=== PATIENT | female | born 1975 | race African-American/Black ===

== ENCOUNTER 2024-12-24 07:51 | Emergency (ER) | payer OTHER ==
[~2024-12-24] VITALS: Ht 162.6 cm; Wt 73.0 kg
[2024-12-24] MEDS: IOHEXOL 300 MG/ML 100ML BOTTLE IJ ONE (08:42)
[2024-12-24 08:44] LABS: Basophils # (auto) 0 10 ^3/uL (0-0.2); Basophils % (auto) 0.7 % (0.0-2.0); Eosinophils # (auto) 0 10 ^3/uL (0-0.8); Eosinophils % (auto) 0.3 % (0.0-7.0); Hematocrit 40.8 % (36.0-46.0); Hemoglobin 13.8 g/dL (12.2-16.2); Lymphocytes # (auto) 1.2 10 ^3/uL (0.4-5.4); Lymphocytes % (auto) 20.6 % (10.0-50.0); Mean Corpuscular Hemoglobin 33.7 pg (28.0-32.0); Mean Corpuscular Hgb Conc. 33.9 g/dL (32.0-36.0); Mean Corpuscular Volume 99.5 fL (80.0-100.0); Monocytes # (auto) 0.2 10 ^3/uL (0-1.3); Monocytes % (auto) 3.9 % (0.0-12.0); Neutrophils # (auto) 4.5 10 ^3/uL (1.6-8.6); Neutrophils % (auto) 74.5 % (37.0-80.0); Nucleated Red Blood Cells % 0.1 %; Platelet Count (auto) 250 10^3/uL (140-450); Red Blood Cells 4.11 10^6/uL (4.0-5.20); Red Cell Distribution Width 13.2 % (11.8-14.3)
[2024-12-24 09:06] LABS: Alanine Aminotransferase 19 U/L (7-40); Albumin 4.7 g/dL (3.2-4.8); Alkaline Phosphatase 97 U/L (46-116); Anion Gap 12 (5-15); Aspartate Aminotransferase 18 U/L (13-40); Bilirubin, Total 0.5 mg/dL (0.2-1.0); Carbon Dioxide 24 mmol/L (20-31); Chloride 103 mmol/L (98-107); Lipase 34 U/L (12-53); Sodium 139 mmol/L (136-145); Total Protein 7.6 g/dL (5.7-8.2)
[2024-12-24] MEDS: PANTOPRAZOLE 40 MG/10 ML VIAL INJ IV ONE (09:10)
[2024-12-24] MEDS: SODIUM CHLORIDE 0.9% 1,000 ML IV ONE (09:10)
[2024-12-24] MEDS: ONDANSETRON HCL 4 MG/2 ML VIAL IV ONE (09:11)
[2024-12-24] MEDS: MORPHINE SULFATE 4 MG/ML SYR/VIAL IV ONE (09:11)
[2024-12-24 09:15] VITALS: TEMP 98
[2024-12-24 09:19] LABS: Blood Urea Nitrogen 9 mg/dL (9-23); Calcium 10.5 mg/dL (8.7-10.4); Glucose 178 mg/dL (74-106); Potassium 3.3 mmol/L (3.5-5.1)
--- NOTE | 2024-12-24 09:48 | DVH ---
Exam: CT CT AB PEL WITH IV CON ONLY History: abdominal pain, hx of blockage COMPARISON: None Technique: Multidetector spiral CT of the abdomen and pelvis was performed from lung bases to pubic symphysis. Intravenous contrast was administered during this examination. Portal venous imaging was obtained. Axial, coronal and sagittal multiplanar reformats were performed by the technologist on a separate workstation. Radiation Dose : Abdomen/Pelvis: CTDIvol 8 mGy, DLP 464 mGy*cm. CONTRAST: Type of contrast: Omni 300 Contrast injected: 100 mL Findings: Lung Bases: No acute or significant lung base finding. Normal heart size. No pleural or pericardial effusion. Liver: Diffuse hepatic steatosis. Few hepatic cysts. Gallbladder and biliary Tree: Unremarkable Spleen: Unremarkable Pancreas: Cyst in the head of the pancreas measuring up to 7 mm. Adrenal Glands: Unremarkable Kidneys: Right upper pole renal cyst. No hydronephrosis. Bladder: Mass in the dependent bladder measuring up to 26 mm. Bowel: The stomach is grossly normal in appearance. Small bowel and colon are normal in caliber and d istribution. The appendix is not visualized; however, no secondary findings of acute appendicitis id entified. Mild diffuse wall thickening of the colon could be due to underdistention. Ascites: Absent Lymphadenopathy: No mesenteric, retroperitoneal or periportal lymphadenopathy. Abdominal wall and Mesentery: Unremarkable. Vasculature: The visualized abdominal aorta is normal in size and caliber. Abdominal and pelvic vess els demonstrate normal enhancement. Pelvic Organs: The uterus is surgically absent. Musculoskeletal: No aggressive focal bony lesions, acute fractures or dislocation. IMPRESSION: 1. Soft tissue mass in the dependent bladder measuring up to 26 mm concerning for bladder malignancy. This can be further evaluated with CT cystogram or MRI of the pelvis with contrast. Urology evaluati on is recommended. 2. Subcentimeter pancreatic cyst. Diffuse hepatic steatosis. Hepatic cysts. Consider further evalua tion with MRI of the abdomen with contrast. 3. Diffuse wall thickening of the colon could be due to underdistention or colitis. Clinical correla tion and continued follow-up is recommended. Radiation optimization: All CT scans at this facility use at least one of these dose optimization matilda hniques: Automated exposure control mA and/or kV adjustment per patient size (includes targeted exams where dose is matched to clinical indication) or iterative reconstruction. HS:Y
[2024-12-24 10:07] VITALS: BP 215/95; PULSE 50; RESP 16; O2SAT 98
[2024-12-24] MEDS ORDERED: MORPHINE SULFATE 4 MG/ML SYR/VIAL IV ONE ×2 (11:00→11:15)
[2024-12-24] MEDS ORDERED: ONDANSETRON HCL 4 MG/2 ML VIAL IV ONE ×2 (11:00→11:15)
--- NOTE | 2024-12-24 11:03 | ED.PDOC ---
History of Present Illness HPI Comments 49-year-old female with a history of bowel blockage presents with 2 days of intractable 10/10 lower abdominal pain associated with projectile nausea and vomiting. Patient reports that she is passing gastroenteritis he has not had any bowel movements. She tried taking Tylenol without relief. Patient denies a [place] fever chills dysuria or polyuria. Chief Complaint: Abdominal Pain Time Seen by MD: 07:55 Primary Care Provider: RENETTA Allergies: Coded Allergies: Penicillins (Verified Allergy, Unknown, 12/24/24) Information Source: Patient Mode of Arrival: Wheelchair Gastrointestinal: reports: abdominal pain, nausea Physical Exam General Appearance: Moderate Distress HEENT: Normal ENT Inspection Neck: Normal Inspection Respiratory: No Respiratory Distress Cardiovascular: Tachycardia Breast Exam: Deferred Gastrointestinal: Other (Diffuse abdominal tenderness) Genitalia: Deferred Pelvic: Deferred Rectal: Deferred Extremities: No pedal edema Neurologic: No Motor Deficits Cerebellar Function: NOT DONE Reflexes: NOT DONE Skin: Warm Lymphatic: NOT DONE Was a procedure done? Was a procedure done?: No Differential Dx Considerations may include: Gastroenteritis, cystitis, appendicitis, malignancy, diverticulitis X-Ray, Labs, Meds, VS Vital Signs Date Time Temp Pulse Resp B/P (MAP) Pulse Ox O2 Delivery O2 Flow Rate FiO2 12/24/24 10:07 50 16 215/95 (135) 98 12/24/24 10:03 50 16 215/95 12/24/24 09:15 98.0 65 17 162/70 (100) 98 98.0 12/24/24 09:11 65 17 162/70 12/24/24 09:08 Room Air* 0 21 12/24/24 08:09 48 12/24/24 08:00 98.0 54 24 172/59 (96) 100 Lab Test 12/24/24 08:20 Range/Units White Blood Count 6.0 4.4-10.8 10^3/uL Red Blood Count 4.11 4.0-5.20 10^6/uL Hemoglobin 13.8 12.2-16.2 g/dL Hematocrit 40.8 36.0-46.0 % Mean Corpuscular Volume 99.5 80.0-100.0 fL Mean Corpuscular Hemoglobin 33.7 H 28.0-32.0 pg Mean Corpuscular Hemoglobin Concent 33.9 32.0-36.0 g/dL Red Cell Distribution Width 13.2 11.8-14.3 % Platelet Count 250 140-450 10^3/uL Mean Platelet Volume 8.6 6.9-10.8 fL Neutrophils (%) (Auto) 74.5 37.0-80.0 % Lymphocytes (%) (Auto) 20.6 10.0-50.0 % Monocytes (%) (Auto) 3.9 0.0-12.0 % Eosinophils (%) (Auto) 0.3 0.0-7.0 % Basophils (%) (Auto) 0.7 0.0-2.0 % Neutrophils # (Auto) 4.5 1.6-8.6 10 ^3/uL Lymphocytes # (Auto) 1.2 0.4-5.4 10 ^3/uL Monocytes # (Auto) 0.2 0-1.3 10 ^3/uL Eosinophils # (Auto) 0 0-0.8 10 ^3/uL Basophils # (Auto) 0 0-0.2 10 ^3/uL Nucleated Red Blood Cells 0.1 % Sodium Level 139 136-145 mmol/L Potassium Level 3.3 L 3.5-5.1 mmol/L Chloride Level 103 98-107 mmol/L Carbon Dioxide Level 24 20-31 mmol/L Anion Gap 12 5-15 Blood Urea Nitrogen 9 9-23 mg/dL Creatinine 0.75 0.550-1.02 mg/dL Glomerular Filtration Rate Calc 96 >90 mL/min BUN/Creatinine Ratio 12.0 10.0-20.0 Serum Glucose 178 H 74-106 mg/dL Calcium Level 10.5 H 8.7-10.4 mg/dL Total Bilirubin 0.5 0.2-1.0 mg/dL Aspartate Amino Transferase (AST) 18 13-40 U/L Alanine Aminotransferase (ALT) 19 7-40 U/L Alkaline Phosphatase 97 46-116 U/L Total Protein 7.6 5.7-8.2 g/dL Albumin 4.7 3.2-4.8 g/dL Lipase 34 12-53 U/L Current Medications Medications (Trade) Dose Ordered Sig/Cam Route Start Time Stop Time Status Last Admin Sodium Chloride 1,000 ml @ 1,000 mls/hr Q1H ONCE IV 12/24/24 08:15 12/24/24 09:14 DC 12/24/24 09:10 Ondansetron HCl (Zofran) 4 mg ONCE ONCE IV 12/24/24 08:15 12/24/24 08:16 DC 12/24/24 09:11 Morphine Sulfate 4 mg ONCE ONCE IV 12/24/24 08:15 12/24/24 08:16 DC 12/24/24 09:11 Pantoprazole Sodium (Protonix) 40 mg ONCE ONCE IV 12/24/24 08:15 12/24/24 08:16 DC 12/24/24 09:10 Time of 1ST Reevaluation: 11:01 Reevaluation 1ST: Improved Patient Education/Counseling: Diagnosis, Treatment Family Education/Counseling: No Family Present Departure 1 Departure Time of Disposition: 11:01 (Patient presented with abdominal pain that was concerning for possible appendicits, gastritis, cholecystitis, colitis, gastroenteritis, sbo, or orther possible surgical emergency. Data: 1. I ordered and reviewed the result of at least 3 labs including a CBC, BMP, and Urinalysis. 2. I independently interpreted the following tests: CT Abdoment and Pelvis is c oncerning for malignancy .Risk:This patient has a high risk of morbidity due to further diagnostic testing or treatment and may suffer from an acute abdominal process disorder. Workup reveals likely malignancy and colitis and patient should be admitted for further workup. and possible expert consultation. I discussed at length with the patient her likely cancer diagnosis patient reports that pain is not cause him that and she was made aware of this cancer he over a year ago however has not followed up with the Urology. She reports that if she does not get a bed right away she is going to AMA and is not concerned about her possible cancer diagnosis.) Impression: Primary Impression: Intractable abdominal pain Additional Impression: Bladder mass Disposition: LEFT AGAINST MEDICAL ADVICE Condition: Guarded Critical Care Note Critical Care Time?: Yes Critical care comment: Intractable abdominal pain Authorized and Performed by: Jamila Lopez MD Total critical care time: Approximately 38 minutes Due to a high probability of clinically significant, life threatening deterioration, the patient required my highest level of preparedness to intervene emergently and I personally spent this critical care time directly and personally managing the patient. This critical care time included obtaining a history; examining the patient; pulse oximetry; ordering and review of studies; arranging urgent treatment with development of a management plan; evaluation of patient's response to treatment; frequent reassessment; and, discussions with other providers. This critical care time was performed to assess and manage the high probability of imminent, life-threatening deterioration that could result in multi-organ failure. It was exclusive of separately billable procedures and treating other patients and teaching time. Please see my other sections and the rest of the note for further information on patient assessment and treatment. Stability Stability form required: No Heart Score Heart Score: Heart Score Response (Comments) Value History N/A 0 EKG N/A 0 Age N/A 0 Risk Factors N/A 0 Troponin N/A 0 Total 0 JAMILA LOPEZ MD Dec 24, 2024 11:03
--- NOTE | 2024-12-25 06:42 | ECG ---
[facility] Test Date: 2024-12-24 Test Time: 08:09:05 Pat Name: JOB URBANO Department: ER Room: Gender: F Radarman: ZONIA : 1975 Requested By: JAMILA ALMANZAR Order Number: [id number] Reading MD: Sam Paz Measurements Intervals [place] Rate: 48 P: 38 NH: 161 QRS: 21 QRSD: 86 T: 53 QT: 525 QTc: 470 Interpretive Statements Sinus bradycardia Nonspecific T abnormalities, lateral leads Electronically Signed On 12-25-2024 13:20:53 PST by Sam Paz Please click the below link to view image of tracing.
== END 2024-12-24 11:03 | disposition left against medical advice (07) ==
LOC: ER 07:51 → EDBD 07:51 → ER 11:03
DX: N32.9 Bladder disorder, unspecified (principal); Z88.0 Allergy status to penicillin
CPT/HCPCS: 36415; 74177; 80053; 83690; 85025; 93005; 96361; 96374; 96375; 99285; J2270; J2405; J2470; J7030; Q9967; 96365